=== PATIENT | female | born 1995 ===

== ENCOUNTER 2018-04-01 18:01 | Emergency (ER) | payer OTHER ==
[2018-04-01 18:22] VITALS: RESP 18
[2018-04-01] MEDS ORDERED: Sodium Chloride 0.9% 1,000 ML IV STA (18:26)
[2018-04-01] MEDS ORDERED: Vancomycin 1gm in NS 250ml 1 GM/250 ML BAG IVPB STA (18:26)
--- NOTE | 2018-04-01 18:32 | ED PDOC ---
Arrival/HPI - General Chief Complaint: Abnormal Skin Integrity Historian: Patient - History of Present Illness Narrative History of Present Illness (Text): 04/01/18 18:27 22 y/o female, no significant pmh, nkda, c/o rt. knee redness and pain x 2 weeks. Pt. stated that she has a pimple on the rt. anterior knee about 2 weeks ago, been growing and noted to be enlarged, no joint limitation, no difficulty walking or standing, no fever or chills, no headache or night sweat, no rash, no other medical or psychological complaints. Past Medical History - Provider Review Nursing Documentation Reviewed: Yes - Reproductive Currently : No - Psychiatric Hx Substance Use: No Family/Social History - Physician Review Nursing Documentation Reviewed: Yes Family/Social History: Unknown Family HX Smoking Status: Heavy Smoker > 10 Cigarettes Daily Hx Alcohol Use: Yes Frequency of alcohol use: Socially Hx Substance Use: No Allergies/Home Meds Allergies/Adverse Reactions: Allergies No Known Allergies Allergy (Verified 04/01/18 18:22) Review of Systems - Review of Systems Constitutional: absent: Fatigue, Fevers Eyes: absent: Vision Changes ENT: absent: Hearing Changes Respiratory: absent: SOB, Cough Cardiovascular: absent: Chest Pain Gastrointestinal: absent: Abdominal Pain, Nausea, Vomiting Musculoskeletal: Arthralgias. absent: Back Pain, Neck Pain, Joint Swelling, Myalgias Skin: Rash, Pruritis, Abscess, Cellulitis. absent: Skin Lesions, Laceration, Ulcer Neurological: absent: Headache, Dizziness Psychiatric: absent: Anxiety, Depression, Suicidal Ideation Physical Exam Vital Signs Reviewed: Yes Vital Signs Temp Pulse Resp BP Pulse Ox 04/01/18 18:19 99.4 F 127 H 18 146/91 H 100 Temperature: Afebrile Blood Pressure: Hypertensive Pulse: Tachycardic Respiratory Rate: Normal Appearance: Positive for: Well-Appearing, Non-Toxic, Comfortable Pain Distress: Moderate Mental Status: Positive for: Alert and Oriented X 3 - Systems Exam Head: Present: Atraumatic, Normocephalic Pupils: Present: PERRL Extroacular Muscles: Present: EOMI Conjunctiva: Present: Normal Mouth: Present: Moist Mucous Membranes Neck: Present: Normal Range of Motion Respiratory/Chest: Present: Clear to Auscultation, Good Air Exchange. No: Respiratory Distress, Accessory Muscle Use Cardiovascular: Present: Regular Rate and Rhythm, Normal S1, S2. No: Murmurs Abdomen: No: Tenderness, Distention, Peritoneal Signs Back: Present: Normal Inspection Upper Extremity: Present: Normal Inspection. No: Cyanosis, Edema Lower Extremity: Present: Normal Inspection, Other (Rt. knee: approx. [id number] cellulitis with 1cm diameter furuncle superficial abscess with mild fluctuancy in the middle, no streaking, no ulcers, FROM without limitation, sensation intact, motor 5/5, +DPPT Pulses, neurovascular intact. ). No: Edema Neurological: Present: GCS=15, CN II-XII Intact, Speech Normal Skin: Present: Warm, Dry, Normal Color. No: Rashes Psychiatric: Present: Alert, Oriented x 3, Normal Insight, Normal Concentration Medical Decision Making ED Course and Treatment: 04/01/18 18:33 -labs -xray -IV vancomycin/toradol -I&D -Observe and reassess 04/01/18 19:23 Procedure: Incision & Drainage Performed by the emergency provider Indication: rt. knee superficial abscess Location: rt. knee superficial abscess Preparation: The area was prepped and draped in the usual sterile fashion and was cleansed with 1000cc, clean with betadine. Local infiltration of Lidocaine 1% 1cc was used for anesthesia. Procedure: The most fluctuant portion of the abscess was incised with a #11 scalpel. Approximately 0.5mL of was obtained. there is no room for packing. A dressing was applied by the RN. Post-Procedure: On exam the abscess is notably less fluctuant. The patient tolerated the procedure well, and there were no complications. Cultured: {NO} 04/01/18 20:39 -Urine hcg is negative -Rt. knee xray ER wet read: no fracture/dislocation/osteolyitic lesions -Labs are non-significant -Pt. is advised to return to the ER in 2 days for wound check. -Discharge home with clindamycin, motrin, bed rest, keep the dressing dry and clean, follow up with your own pmd within 3 days, return to the ER for wound check or see orthopedic in 2days, return to the ER for any new or worsening signs or symptoms. 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 Disposition/Present on Arrival - Present on Arrival Any Indicators Present on Arrival: No History of DVT/PE: No History of Uncontrolled Diabetes: No Urinary Catheter: No History of Decub. Ulcer: No History Surgical Site Infection Following: None - Disposition Have Diagnosis and Disposition been Completed?: Yes Diagnosis: Furuncle of knee, Cellulitis of knee Disposition: HOME/ ROUTINE Disposition Time: 20:41 Patient Plan: Discharge Condition: IMPROVED Discharge Instructions (ExitCare): Cellulitis (ED) Additional Instructions: -Discharge home with clindamycin, motrin, bed rest, keep the dressing dry and clean, follow up with your own pmd within 3 days, return to the ER for wound check or see orthopedic in 2days, return to the ER for any new or worsening signs or symptoms. Prescriptions: Clindamycin [Cleocin] 300 mg PO QID #40 cap Ibuprofen [Motrin Tab] 600 mg PO QID PRN #30 tab PRN Reason: Other Referrals: FAMILY PROVIDER,NO [Primary Care Provider] - Follow up with primary Nawaf Landaverde DO [Staff Provider] - [place] up [place] [facility] [place] - Follow up with primary Forms: [facility] (Tunisian), WORK NOTE
[2018-04-01 19:11] LABS: BASO # 0.02 K/mm3 (0.0-2.0); BASO % 0.3 % (0.0-3.0); EOS % 0.4 % (1.5-5.0); HEMOGLOBIN 11.5 g/dL (12.0-16.0); LYMPH # 0.8 (1.2-3.4); LYMPH % 9.6 % (22.0-35.0); MEAN CELL VOLUME 77.1 fl (80.0-105.0); MEAN CORPUSCULAR HEMOGLOBIN 24.8 pg (25.0-35.0); MEAN CORPUSCULAR HGB CONC 32.2 g/dl (31.0-37.0); MEAN PLATELET VOLUME 10.1 fl (7.0-11.0); MONO # 0.5 (0.1-0.6); RBC 4.63 10^6/uL (3.5-6.1); RED CELL DISTRIBUTION WIDTH 16.5 % (11.5-14.5)
[2018-04-01 19:20] LABS: ALB/GLOB RATIO 1.2 (1.1-1.8); ALBUMIN 4.5 g/dL (3.0-4.8); ALT/SGPT 10 U/L (7-56); AST/SGOT 29 U/L (14-36); BLOOD UREA NITROGEN 10 mg/dL (7-21); CALCIUM 9.3 mg/dL (8.4-10.5); GFR NON-AFRICAN AMERICAN > 60
[2018-04-01 19:29] VITALS: O2SAT 99
[2018-04-01 20:41] VITALS: BP 138/75; PULSE 86; TEMP 99.2
--- NOTE | 2018-04-02 14:45 | RAD ---
Date of service: 04/01/2018 PROCEDURE: Right Knee and patella radiographs. HISTORY: rt. knee anterior cellulitis COMPARISON: None. FINDINGS: BONES: Normal. No fracture. JOINTS: Normal. No osteoarthritis. JOINT EFFUSION: None. OTHER FINDINGS: None. IMPRESSION: Normal radiographs of the right knee.
== END 2018-04-01 21:16 | disposition home or self-care (01) ==
LOC: ED 18:01
DX: L03.115 Cellulitis of right lower limb (principal); L02.425 Furuncle of right lower limb
CPT/HCPCS: 73562; 80053; 81025; 85025; 96374; 99283; J1885; J7030